=== PATIENT | female | born 1990 | race Caucasian/White ===

== ENCOUNTER 2017-12-22 17:15 | Inpatient (IN) | payer OTHER ==
[2017-12-22] MEDS ORDERED: Sodium Chloride 0.9% 1,000 ML IV ONE (17:32)
[2017-12-22] MEDS ORDERED: Activated Charcoal/Water Susp 50 GM/240 ML Tube PO ONE (18:08)
[2017-12-22 18:23] LABS: ACETAMINOPHEN 3 ug/mL (10-30)
[2017-12-22] MEDS ORDERED: Potassium Chloride 10 MEQ in Premix Bag 1 BAG IV STA (18:46)
--- NOTE | 2017-12-22 19:32 | EDM.PDOCBH ---
ED HPI GENERAL MEDICAL PROBLEM - General Chief Complaint: Behavioral/Psych Stated Complaint: [facility] Time Seen by Provider: 12/22/17 17:21 Source of Information: Reports: Patient History Limitations: Reports: No Limitations - History of Present Illness INITIAL COMMENTS - FREE TEXT/NARRATIVE: 27-year-old female presents via [facility] for evaluation and treatment of a suicide attempt by hanging and overdose. Patient reports she tried to hang herself about 2 hours prior to arrival in the ER. Reports she tried to overdose 1 hour prior to arrival in the ER. States that she took 6 1 mg Ativan and about 15-20 tabs of another medication. She initially said these were pink pills. She then told us that they were propranolol 10mg tabs. Her only pink tablets that she has prescribed to her are Seroquel 25 mg and citalopram 40mg milligrams. Upon arrival to the ER she is alert and orientated but elusive and agitated. Unwilling to give much information. Patient reports prior to today she has been taking the medications as prescribed. Nursing staff counted medications and if she is indeed taking her medications as prescribed all are accounted for. Patient reports that she was ill recently. She had abdominal discomfort and diarrhea over the last few days but this has now improved. Also reports hematuria intermittently the last few days. Patient is on several medications for pain including soma 350 mg and Vernon 10/ 325. She states she is on this for chronic back and and muscle spasms. Apparently the patient is from [place]. She came here several weeks ago. She has a and children in [place] that she is currently from. She is currently living with her fianc here in [place]. Plans to home to [place] in the next several weeks. She reports that her and her ex- got into an argument tonight and this is why she attempted to take her life. She states the overdose was an attempt to go to sleep. Reports the pain was a suicide attempt. Patient's fianc was present and witnessed the hanging. Reports she was not home for long less than a second. She attempted to do this with a belt. Sounds as if she had her hands and her neck in the belt immediately came free. She has no ligature golden to her neck. He reports he was in the bathroom when she took the medications. Onset: Today - Related Data Allergies Allergy/AdvReac Type Severity Reaction Status Date / Time clonazepam [From Klonopin] Allergy Other Verified 12/22/17 17:30 codeine Allergy Anaphylactic Verified 12/22/17 17:30 Shock gabapentin Allergy Seizure Verified 12/22/17 17:30 ketorolac [From Toradol] Allergy Anaphylactic Verified 12/22/17 17:30 Shock Penicillins Allergy Chest Verified 12/22/17 17:30 Tightness Home Meds: Home Meds Carisoprodol [Soma] 350 mg PO QID PRN 12/22/17 [History] Hydrocodone/Acetaminophen [Vernon 10-325 Tablet] 1 each PO Q4H 12/22/17 [History] LORazepam [Ativan] 1 mg PO BEDTIME 12/22/17 [History] Lurasidone HCl [Latuda] 40 mg PO BEDTIME 12/22/17 [History] Propranolol [Inderal] 10 mg PO ASDIRECTED 12/22/17 [History] QUEtiapine [SEROquel] 100 mg PO DAILY 12/22/17 [History] Topiramate [Topamax] 50 mg PO DAILY 12/22/17 [History] Past Medical History [employer] History: Reports: Psychiatric History: Reports: Addiction - Past Surgical History GI Surgical History: Reports: Bariatric Procedure Female Surgical History: Reports: Tubal Ligation Social & Family History - Tobacco Use Smoking Status *Q: Current Every Day Smoker Years of Tobacco use: 16 Packs/Tins Daily: 0.5 Used Tobacco, but Quit: No - Caffeine Use Caffeine Use: Reports: Soda - Recreational Drug Use Recreational Drug Use: No ED ROS GENERAL - Review of Systems Review Of Systems: See Below GI/Abdominal: Reports: Diarrhea (recently, now resolved) : Reports: Hematuria (intermittently) ED EXAM, BEHAVIORAL HEALTH - Physical Exam Exam: See Below Exam Limited By: No Limitations General Appearance: Alert, WD/WN, No Apparent Distress Ears: Normal External Exam Nose: Normal Inspection Throat/Mouth: Normal Inspection, Normal Lips, Normal Voice, No Airway Compromise Head: Atraumatic, Normocephalic Neck: Normal Inspection, Supple, Non-Tender, Full Range of Motion, Other (no ligature golden present) Respiratory/Chest: No Respiratory Distress, Lungs Clear, Normal Breath Sounds Cardiovascular: Normal Peripheral Pulses, Regular Rate, Rhythm, No Murmur GI/Abdominal: Normal Bowel Sounds, Soft, Non-Tender Neurological: Alert, Normal Cognition Psychiatric: Agitated, Uncooperative Skin Exam: Warm, Dry, Normal color, Signs of self injury (healed scars to the left wrist from previous cutting ) EKG INTERPRETATION EKG Date: 12/22/17 Time: 18:00 Rhythm: NSR Rate (Beats/Min): 72 [place]ard: Normal P-Wave: Present QRS: Normal ST-T: Normal QT: Normal (QTc 435) EKG Interpretation Comments: NSR at 72. QTc within normal limits at 435 bpm. No acute changes. Reviewed by myself and Dr. Andres. COURSE, BEHAVIORAL HEALTH COMP - Course Vital Signs: Last Vital Signs Temp 97.9 F 12/22/17 17:22 Pulse 94 12/22/17 20:09 Resp 22 H 12/22/17 20:09 BP 119/73 12/22/17 20:09 Pulse Ox 95 12/22/17 20:09 Orders, Labs, Meds: Active Orders 24 hr Category Date Time Status Patient Status [ADT] Routine ADT 12/22/17 20:59 Active EKG 12 Lead [EKG Documentation Completion] [RC] STAT Care 12/22/17 17:32 Active CALCIUM, IONIZED, SERUM [REF] Stat Lab 12/22/17 18:00 Received DRUG SCREEN, URINE [URCHEM] Stat Lab 12/22/17 18:20 Ordered UA W/MICROSCOPIC [URIN] Stat Lab 12/22/17 18:20 Ordered Laboratory Tests 12/22/17 12/22/17 12/22/17 Range/Units 18:00 18:00 18:00 WBC 6.12 (3.98-10.04) K/mm3 RBC 3.56 L (3.98-5.22) M/mm3 Hgb 11.9 (11.2-15.7) gm/L Hct 35.3 (34.1-44.9) % MCV 99.2 H (79.4-94.8) fl MCH 33.4 H (25.6-32.2) pg MCHC 33.7 (32.2-35.5) g/dl RDW Std Deviation 51.0 H (36.4-46.3) fL Plt Count 145 L (182-369) K/mm3 MPV 8.8 L (9.4-12.3) fl Neut % (Auto) 58.2 (34.0-71.1) % Lymph % (Auto) 33.0 (19.3-51.7) % Dent % (Auto) 8.2 (4.7-12.5) % Eos % (Auto) 0.2 L (0.7-5.8) Baso % (Auto) 0.2 (0.1-1.2) % Neut # (Auto) 3.57 (1.56-6.13) K/mm3 Lymph # (Auto) 2.02 (1.18-3.74) K/mm3 Dent # (Auto) 0.50 H (0.24-0.36) K/mm3 Eos # (Auto) 0.01 L (0.04-0.36) K/mm3 Baso # (Auto) 0.01 (0.01-0.08) K/mm3 Sodium 147 H (136-145) mEq/L Potassium 2.8 L (3.5-5.1) mEq/L Chloride 111 H (98-107) mEq/L Carbon Dioxide 25 (21-32) mEq/L Anion Gap 13.8 (5-15) BUN 13 (7-18) mg/dL Creatinine 0.7 (0.55-1.02) mg/dL Est Cr Clr Drug Dosing 107.67 mL/min Estimated GFR (MDRD) > 60 (>60) mL/min BUN/Creatinine Ratio 18.6 H (14-18) Glucose 91 (74-106) mg/dL Calcium 7.3 L (8.5-10.1) mg/dL Magnesium (1.8-2.4) mg/dl Total Bilirubin 0.4 (0.2-1.0) mg/dL AST 19 (15-37) U/L ALT 38 (14-59) U/L Alkaline Phosphatase 82 (46-116) U/L Total Protein 5.6 L (6.4-8.2) g/dl Albumin 2.8 L (3.4-5.0) g/dl Globulin 2.8 gm/dL Albumin/Globulin Ratio 1.0 (1-2) HCG, Qual Negative (NEGATIVE) Urine Color (Yellow) Urine Appearance (Clear) Urine pH (5.0-8.0) Ur Specific [place] (1.005-1.030) Urine Protein (Negative) Urine Glucose (UA) (Negative) Urine Ketones (Negative) Urine Occult Blood (Negative) Urine Nitrite (Negative) Urine Bilirubin (Negative) Urine Urobilinogen (0.2-1.0) Ur Leukocyte Esterase (Negative) Urine RBC (0-5) /hpf Urine WBC (0-5) /hpf Ur Epithelial Cells (0-5) /hpf Urine Bacteria (FEW) /hpf Urine Mucus (FEW) /hpf Salicylates (2.8-20) mg/dL Urine Opiates Screen (NEGATIVE) Ur Buprenorphine Scrn (NEGATIVE) Ur Oxycodone Screen (NEGATIVE) Urine Methadone Screen (NEGATIVE) Ur Propoxyphene Screen (NEGATIVE) Acetaminophen 3 L (10-30) ug/mL Ur Barbiturates Screen (NEGATIVE) Ur Tricyclics Screen (NEGATIVE) Ur Phencyclidine Scrn (NEGATIVE) Ur Amphetamine Screen (NEGATIVE) U Methamphetamines Scrn (NEGATIVE) U Benzodiazepines Scrn (NEGATIVE) U Cocaine Metab Screen (NEGATIVE) U Marijuana (THC) Screen (NEGATIVE) Ethyl Alcohol 0.23 (0.00) gm% 12/22/17 12/22/17 12/22/17 Range/Units 18:00 18:00 18:20 WBC (3.98-10.04) K/mm3 RBC (3.98-5.22) M/mm3 Hgb (11.2-15.7) gm/L Hct (34.1-44.9) % MCV (79.4-94.8) fl MCH (25.6-32.2) pg MCHC (32.2-35.5) g/dl RDW Std Deviation (36.4-46.3) fL Plt Count (182-369) K/mm3 MPV (9.4-12.3) fl Neut % (Auto) (34.0-71.1) % Lymph % (Auto) (19.3-51.7) % Dent % (Auto) (4.7-12.5) % Eos % (Auto) (0.7-5.8) Baso % (Auto) (0.1-1.2) % Neut # (Auto) (1.56-6.13) K/mm3 Lymph # (Auto) (1.18-3.74) K/mm3 Dent # (Auto) (0.24-0.36) K/mm3 Eos # (Auto) (0.04-0.36) K/mm3 Baso # (Auto) (0.01-0.08) K/mm3 Sodium (136-145) mEq/L Potassium (3.5-5.1) mEq/L Chloride (98-107) mEq/L Carbon Dioxide (21-32) mEq/L Anion Gap (5-15) BUN (7-18) mg/dL Creatinine (0.55-1.02) mg/dL Est Cr Clr Drug Dosing mL/min Estimated GFR (MDRD) (>60) mL/min BUN/Creatinine Ratio (14-18) Glucose (74-106) mg/dL Calcium (8.5-10.1) mg/dL Magnesium 1.9 (1.8-2.4) mg/dl Total Bilirubin (0.2-1.0) mg/dL AST (15-37) U/L ALT (14-59) U/L Alkaline Phosphatase (46-116) U/L Total Protein (6.4-8.2) g/dl Albumin (3.4-5.0) g/dl Globulin gm/dL Albumin/Globulin Ratio (1-2) HCG, Qual (NEGATIVE) Urine Color Light yellow (Yellow) Urine Appearance Slt cloudy H (Clear) Urine pH 6.5 (5.0-8.0) Ur Specific [place] 1.015 (1.005-1.030) Urine Protein Negative (Negative) Urine Glucose (UA) Negative (Negative) Urine Ketones Negative (Negative) Urine Occult Blood Trace-intact H (Negative) Urine Nitrite Positive H (Negative) Urine Bilirubin Negative (Negative) Urine Urobilinogen 0.2 (0.2-1.0) Ur Leukocyte Esterase 1+ H (Negative) Urine RBC 0-5 (0-5) /hpf Urine WBC 5-10 H (0-5) /hpf Ur Epithelial Cells 0-5 (0-5) /hpf Urine Bacteria Moderate H (FEW) /hpf Urine Mucus Not seen (FEW) /hpf Salicylates 1.6 L (2.8-20) mg/dL Urine Opiates Screen (NEGATIVE) Ur Buprenorphine Scrn (NEGATIVE) Ur Oxycodone Screen (NEGATIVE) Urine Methadone Screen (NEGATIVE) Ur Propoxyphene Screen (NEGATIVE) Acetaminophen (10-30) ug/mL Ur Barbiturates Screen (NEGATIVE) Ur Tricyclics Screen (NEGATIVE) Ur Phencyclidine Scrn (NEGATIVE) Ur Amphetamine Screen (NEGATIVE) U Methamphetamines Scrn (NEGATIVE) U Benzodiazepines Scrn (NEGATIVE) U Cocaine Metab Screen (NEGATIVE) U Marijuana (THC) Screen (NEGATIVE) Ethyl Alcohol (0.00) gm% 12/22/17 Range/Units 18:20 WBC (3.98-10.04) K/mm3 RBC (3.98-5.22) M/mm3 Hgb (11.2-15.7) gm/L Hct (34.1-44.9) % MCV (79.4-94.8) fl MCH (25.6-32.2) pg MCHC (32.2-35.5) g/dl RDW Std Deviation (36.4-46.3) fL Plt Count (182-369) K/mm3 MPV (9.4-12.3) fl Neut % (Auto) (34.0-71.1) % Lymph % (Auto) (19.3-51.7) % Dent % (Auto) (4.7-12.5) % Eos % (Auto) (0.7-5.8) Baso % (Auto) (0.1-1.2) % Neut # (Auto) (1.56-6.13) K/mm3 Lymph # (Auto) (1.18-3.74) K/mm3 Dent # (Auto) (0.24-0.36) K/mm3 Eos # (Auto) (0.04-0.36) K/mm3 Baso # (Auto) (0.01-0.08) K/mm3 Sodium (136-145) mEq/L Potassium (3.5-5.1) mEq/L Chloride (98-107) mEq/L Carbon Dioxide (21-32) mEq/L Anion Gap (5-15) BUN (7-18) mg/dL Creatinine (0.55-1.02) mg/dL Est Cr Clr Drug Dosing mL/min Estimated GFR (MDRD) (>60) mL/min BUN/Creatinine Ratio (14-18) Glucose (74-106) mg/dL Calcium (8.5-10.1) mg/dL Magnesium (1.8-2.4) mg/dl Total Bilirubin (0.2-1.0) mg/dL AST (15-37) U/L ALT (14-59) U/L Alkaline Phosphatase (46-116) U/L Total Protein (6.4-8.2) g/dl Albumin (3.4-5.0) g/dl Globulin gm/dL Albumin/Globulin Ratio (1-2) HCG, Qual (NEGATIVE) Urine Color (Yellow) Urine Appearance (Clear) Urine pH (5.0-8.0) Ur Specific [place] (1.005-1.030) Urine Protein (Negative) Urine Glucose (UA) (Negative) Urine Ketones (Negative) Urine Occult Blood (Negative) Urine Nitrite (Negative) Urine Bilirubin (Negative) Urine Urobilinogen (0.2-1.0) Ur Leukocyte Esterase (Negative) Urine RBC (0-5) /hpf Urine WBC (0-5) /hpf Ur Epithelial Cells (0-5) /hpf Urine Bacteria (FEW) /hpf Urine Mucus (FEW) /hpf Salicylates (2.8-20) mg/dL Urine Opiates Screen Negative (NEGATIVE) Ur Buprenorphine Scrn Negative (NEGATIVE) Ur Oxycodone Screen Negative (NEGATIVE) Urine Methadone Screen Negative (NEGATIVE) Ur Propoxyphene Screen Negative (NEGATIVE) Acetaminophen (10-30) ug/mL Ur Barbiturates Screen Negative (NEGATIVE) Ur Tricyclics Screen Negative (NEGATIVE) Ur Phencyclidine Scrn Negative (NEGATIVE) Ur Amphetamine Screen Negative (NEGATIVE) U Methamphetamines Scrn Negative (NEGATIVE) U Benzodiazepines Scrn Presumptive positive H (NEGATIVE) U Cocaine Metab Screen Negative (NEGATIVE) U Marijuana (THC) Screen Negative (NEGATIVE) Ethyl Alcohol (0.00) gm% Medications Discontinued Medications Generic Name Dose Route Start Last Admin Trade Name Freq PRN Reason Stop Dose Admin Charcoal 50 gm 12/22/17 18:08 12/22/17 18:18 Actidose-Aqua PO 12/22/17 18:09 50 gm ONETIME ONE Administration Sodium Chloride 1,000 mls @ 999 mls/hr 12/22/17 17:32 12/22/17 19:18 Normal Saline IV 12/22/17 18:32 Infused ONETIME ONE Infusion Potassium Chloride 10 meq/ 100 mls @ 100 mls/hr 12/22/17 18:46 07/21/18 19:14 Premix IV 12/22/17 19:45 100 mls/hr NOW STA Administration Ceftriaxone Sodium 2 gm/ 100 mls @ 100 mls/hr 12/22/17 20:09 12/22/17 20:30 Sodium Chloride IV 12/22/17 21:08 100 mls/hr ONETIME ONE Administration Re-Assessment/Re-Exam: 20:50 Poison control was contacted immediately once it was determined that she possibly could have overdosed on propranolol. Recommended activated charcoal. She took about half of the 50 gram dosage. Recommended monitoring until we could determine exactly what she had taken. Patient's fiancs brought her medications in. She continues states she took 6 1 mg tabs of Ativan and will 15-20 "pink pills ". the only pink medication she has are her Seroquel 25 mg and Celexa 40 mg. Poison control Was updated with this information. The propranolol she is on is the regular, not extended release. Looking like it is less likely that it was propranolol as she ingested, she has not had any bradycardia or hypotension. Recommend monitoring for at least 12 hours she is high risk for seizures if she took Celexa. She is also at risk for QT prolongation. And with her blood alcohol being 0.23 she is not cognizant to go home at this time. Case discussed with Dr. Landeros, hospitalist. She agreed to the admission. She will to the ICU where can be closely monitored. She has been given some potassium, fluids and Rocephin here in the ED. Departure - Departure Time of Disposition: 20:50 Disposition: Admitted As Inpatient 65 Condition: Undetermined Clinical Impression: Alcohol abuse, Drug abuse, Self-harm - Discharge Information Referrals: PCP,None [Primary Care Provider] - Forms: ED Department Discharge - My Orders Last 24 Hours: My Active Orders 12/22/17 17:32 EKG 12 Lead [EKG Documentation Completion] [RC] STAT 12/22/17 18:00 CALCIUM, IONIZED, SERUM [REF] Stat 12/22/17 18:20 DRUG SCREEN, URINE [URCHEM] Stat UA W/MICROSCOPIC [URIN] Stat 12/22/17 20:59 Patient Status [ADT] Routine - Assessment/Plan Last 24 Hours: My Active Orders 12/22/17 17:32 EKG 12 Lead [EKG Documentation Completion] [RC] STAT 12/22/17 18:00 CALCIUM, IONIZED, SERUM [REF] Stat 12/22/17 18:20 DRUG SCREEN, URINE [URCHEM] Stat UA W/MICROSCOPIC [URIN] Stat 12/22/17 20:59 Patient Status [ADT] Routine
[2017-12-22] MEDS ORDERED: cefTRIAXone 2 GM in Sodium Chloride 0.9% 100 ML IV ONE (20:09)
[2017-12-22] MEDS ORDERED: Metoprolol Tartrate 5 MG/5 ML SDV IVPUSH PRN (21:53)
[2017-12-22] MEDS ORDERED: Sodium Chloride 0.9% 1,000 ML IV SCH (22:00)
[2017-12-22] MEDS: chlordiazePOXIDE 10 MG Cap PO PRN (22:15)
[2017-12-23] MEDS: chlordiazePOXIDE 10 MG Cap PO PRN (07:09)
[2017-12-23] MEDS ORDERED: Ondansetron 4 MG/2 ML SDV IVPUSH PRN (09:31)
[2017-12-23] MEDS ORDERED: Topiramate 25 MG Tab PO SCH (09:45)
[2017-12-23] MEDS ORDERED: cefTRIAXone 2 GM in Sodium Chloride 0.9% 100 ML IV SCH (10:00)
--- NOTE | 2017-12-23 11:13 | PCM.DCSUM1 ---
Discharge Summary - Hospital Course Free Text/Narrative:: 27 year old signed out AMA after her psychiatric evaluation, the psychiatrist of record did not feel that additional evaluation was needed. Adjustment of her medication included a change to Seroquel at bedtime and Topamax BID. She refused to stay after the risk and benefits were explained in detail and subsequently left AMA. The patient reported having a chemical dependency treatment program in [place], [place] that she would be starting when returning in less than 2 weeks.. She reported to the hospitalist service that her fiance will keep booze away from her. She also stated that she was able to stop on her own. She stayed overnight in the ICU for close monitoring; overall , this appeared to be self harm and not a suicide gesture or attempt. HPI Initial Comments: 7 year old female presents after reportedly trying to harm herself, denies suicide gesture or attempt; she took Ativan and drank ETOH. The TED is 0.23. The patient's baseline is "a case" of presumably beer every 2-3 days. It had been reported that she tried to hang herself, but there are no golden or trauma on her neck. The patient has a history of meth abuse/dependence and has reportedly stopped 11 years ago. Additionally she reports stopping marijuana use 3 months ago. She states that she got into an argument with her whom she states is in [place]. Thus the report of the drinking binge was triggered by the argument. They have three children, they are getting a divorce. She has an extensive family psychiatric history involving both parents and a grandparent with schizophrenia and/or bipolar affective disorder. She is currently in the ED with her fiance who resides in [place]. Thus the history portion was obtained by the ED provider. The patient may or may not have taken Propranolol, she will be monitored for arrhythmias and withdrawal symptoms in the ICU. Consults by psychiatry and substance abuse providers have been requested. She is a full code. Diagnosis: Stroke: No - Discharge Data Discharge Date: 12/23/17 Discharge Disposition: Against Medical Advice 07 Condition: Good - Patient Summary/Data Consults: Consultations 12/22/17 22:00 Consult to Physician [CONS] Routine 12/22/17 22:02 Consult for Substance Abuse [CONS] Routine - Patient Instructions Diet: Regular Diet as Tolerated Activity: As Tolerated Driving: Do Not Drive Showering/Bathing: May Shower - Discharge Plan *PRESCRIPTION DRUG MONITORING PROGRAM REVIEWED*: No *COPY OF PRESCRIPTION DRUG MONITORING REPORT IN PATIENT GLADIS: No Home Medications: Home Meds Propranolol [Inderal] 10 mg PO ASDIRECTED 12/22/17 [History] QUEtiapine [SEROquel] 100 mg PO BEDTIME #0 12/23/17 [Rx] Topiramate [Topamax] 50 mg PO BID #0 12/23/17 [Rx] Albuterol [Ventolin HFA] 1 puff INH Q4H PRN #1 inhaler 12/24/17 [Rx] Potassium Chloride 20 meq PO DAILY #7 tablet.er 12/24/17 [Rx] Patient Handouts: Alcohol Use Disorder, Sedative, Hypnotic, or Anxiolytic Use Disorder Forms: ED Department Discharge Referrals: PCP,None [Primary Care Provider] - - Discharge Summary/Plan Comment DC Time >30 min.: No - General Info Date of Service: 12/22/17 - Patient Data Vitals - Most Recent: Last Vital Signs Temp 36.4 C 12/23/17 07:57 Pulse 88 12/23/17 03:04 Resp 17 12/23/17 07:57 BP 145/90 H 12/23/17 07:57 Pulse Ox 96 12/23/17 07:57 Weight - Most Recent: 76.022 kg I&O - Last 24 hours: Intake & Output 12/22/17 12/23/17 12/23/17 22:59 06:59 14:59 Intake Total 551 Output Total 500 1050 600 Balance -500 -499 -600 Lab Results - Last 24 hrs: Laboratory Results - last 24 hr 12/22/17 12/22/17 12/22/17 Range/Units 18:00 18:00 18:00 WBC 6.12 (3.98-10.04) K/mm3 RBC 3.56 L (3.98-5.22) M/mm3 Hgb 11.9 (11.2-15.7) gm/L Hct 35.3 (34.1-44.9) % MCV 99.2 H (79.4-94.8) fl MCH 33.4 H (25.6-32.2) pg MCHC 33.7 (32.2-35.5) g/dl RDW Std Deviation 51.0 H (36.4-46.3) fL Plt Count 145 L (182-369) K/mm3 MPV 8.8 L (9.4-12.3) fl Neut % (Auto) 58.2 (34.0-71.1) % Lymph % (Auto) 33.0 (19.3-51.7) % [place] % (Auto) 8.2 (4.7-12.5) % Eos % (Auto) 0.2 L (0.7-5.8) Baso % (Auto) 0.2 (0.1-1.2) % Neut # (Auto) 3.57 (1.56-6.13) K/mm3 Lymph # (Auto) 2.02 (1.18-3.74) K/mm3 [place] # (Auto) 0.50 H (0.24-0.36) K/mm3 Eos # (Auto) 0.01 L (0.04-0.36) K/mm3 Baso # (Auto) 0.01 (0.01-0.08) K/mm3 Sodium 147 H (136-145) mEq/L Potassium 2.8 L (3.5-5.1) mEq/L Chloride 111 H (98-107) mEq/L Carbon Dioxide 25 (21-32) mEq/L Anion Gap 13.8 (5-15) BUN 13 (7-18) mg/dL Creatinine 0.7 (0.55-1.02) mg/dL Est Cr Clr Drug Dosing 107.67 mL/min Estimated GFR (MDRD) > 60 (>60) mL/min BUN/Creatinine Ratio 18.6 H (14-18) Glucose 91 (74-106) mg/dL Calcium 7.3 L (8.5-10.1) mg/dL Magnesium (1.8-2.4) mg/dl Total Bilirubin 0.4 (0.2-1.0) mg/dL AST 19 (15-37) U/L ALT 38 (14-59) U/L Alkaline Phosphatase 82 (46-116) U/L Total Protein 5.6 L (6.4-8.2) g/dl Albumin 2.8 L (3.4-5.0) g/dl Globulin 2.8 gm/dL Albumin/Globulin Ratio 1.0 (1-2) HCG, Qual Negative (NEGATIVE) Urine Color (Yellow) Urine Appearance (Clear) Urine pH (5.0-8.0) Ur Specific [place] (1.005-1.030) Urine Protein (Negative) Urine Glucose (UA) (Negative) Urine Ketones (Negative) Urine Occult Blood (Negative) Urine Nitrite (Negative) Urine Bilirubin (Negative) Urine Urobilinogen (0.2-1.0) Ur Leukocyte Esterase (Negative) Urine RBC (0-5) /hpf Urine WBC (0-5) /hpf Ur Epithelial Cells (0-5) /hpf Urine Bacteria (FEW) /hpf Urine Mucus (FEW) /hpf Salicylates (2.8-20) mg/dL Urine Opiates Screen (NEGATIVE) Ur Buprenorphine Scrn (NEGATIVE) Ur Oxycodone Screen (NEGATIVE) Urine Methadone Screen (NEGATIVE) Ur Propoxyphene Screen (NEGATIVE) Acetaminophen 3 L (10-30) ug/mL Ur Barbiturates Screen (NEGATIVE) Ur Tricyclics Screen (NEGATIVE) Ur Phencyclidine Scrn (NEGATIVE) Ur Amphetamine Screen (NEGATIVE) U Methamphetamines Scrn (NEGATIVE) U Benzodiazepines Scrn (NEGATIVE) U Cocaine Metab Screen (NEGATIVE) U Marijuana (THC) Screen (NEGATIVE) Ethyl Alcohol 0.23 (0.00) gm% 12/22/17 12/22/17 12/22/17 Range/Units 18:00 18:00 18:20 WBC (3.98-10.04) K/mm3 RBC (3.98-5.22) M/mm3 Hgb (11.2-15.7) gm/L Hct (34.1-44.9) % MCV (79.4-94.8) fl MCH (25.6-32.2) pg MCHC (32.2-35.5) g/dl RDW Std Deviation (36.4-46.3) fL Plt Count (182-369) K/mm3 MPV (9.4-12.3) fl Neut % (Auto) (34.0-71.1) % Lymph % (Auto) (19.3-51.7) % [place] % (Auto) (4.7-12.5) % Eos % (Auto) (0.7-5.8) Baso % (Auto) (0.1-1.2) % Neut # (Auto) (1.56-6.13) K/mm3 Lymph # (Auto) (1.18-3.74) K/mm3 [place] # (Auto) (0.24-0.36) K/mm3 Eos # (Auto) (0.04-0.36) K/mm3 Baso # (Auto) (0.01-0.08) K/mm3 Sodium (136-145) mEq/L Potassium (3.5-5.1) mEq/L Chloride (98-107) mEq/L Carbon Dioxide (21-32) mEq/L Anion Gap (5-15) BUN (7-18) mg/dL Creatinine (0.55-1.02) mg/dL Est Cr Clr Drug Dosing mL/min Estimated GFR (MDRD) (>60) mL/min BUN/Creatinine Ratio (14-18) Glucose (74-106) mg/dL Calcium (8.5-10.1) mg/dL Magnesium 1.9 (1.8-2.4) mg/dl Total Bilirubin (0.2-1.0) mg/dL AST (15-37) U/L ALT (14-59) U/L Alkaline Phosphatase (46-116) U/L Total Protein (6.4-8.2) g/dl Albumin (3.4-5.0) g/dl Globulin gm/dL Albumin/Globulin Ratio (1-2) HCG, Qual (NEGATIVE) Urine Color Light yellow (Yellow) Urine Appearance Slt cloudy H (Clear) Urine pH 6.5 (5.0-8.0) Ur Specific [place] 1.015 (1.005-1.030) Urine Protein Negative (Negative) Urine Glucose (UA) Negative (Negative) Urine Ketones Negative (Negative) Urine Occult Blood Trace-intact H (Negative) Urine Nitrite Positive H (Negative) Urine Bilirubin Negative (Negative) Urine Urobilinogen 0.2 (0.2-1.0) Ur Leukocyte Esterase 1+ H (Negative) Urine RBC 0-5 (0-5) /hpf Urine WBC 5-10 H (0-5) /hpf Ur Epithelial Cells 0-5 (0-5) /hpf Urine Bacteria Moderate H (FEW) /hpf Urine Mucus Not seen (FEW) /hpf Salicylates 1.6 L (2.8-20) mg/dL Urine Opiates Screen (NEGATIVE) Ur Buprenorphine Scrn (NEGATIVE) Ur Oxycodone Screen (NEGATIVE) Urine Methadone Screen (NEGATIVE) Ur Propoxyphene Screen (NEGATIVE) Acetaminophen (10-30) ug/mL Ur Barbiturates Screen (NEGATIVE) Ur Tricyclics Screen (NEGATIVE) Ur Phencyclidine Scrn (NEGATIVE) Ur Amphetamine Screen (NEGATIVE) U Methamphetamines Scrn (NEGATIVE) U Benzodiazepines Scrn (NEGATIVE) U Cocaine Metab Screen (NEGATIVE) U Marijuana (THC) Screen (NEGATIVE) Ethyl Alcohol (0.00) gm% 12/22/17 Range/Units 18:20 WBC (3.98-10.04) K/mm3 RBC (3.98-5.22) M/mm3 Hgb (11.2-15.7) gm/L Hct (34.1-44.9) % MCV (79.4-94.8) fl MCH (25.6-32.2) pg MCHC (32.2-35.5) g/dl RDW Std Deviation (36.4-46.3) fL Plt Count (182-369) K/mm3 MPV (9.4-12.3) fl Neut % (Auto) (34.0-71.1) % Lymph % (Auto) (19.3-51.7) % [place] % (Auto) (4.7-12.5) % Eos % (Auto) (0.7-5.8) Baso % (Auto) (0.1-1.2) % Neut # (Auto) (1.56-6.13) K/mm3 Lymph # (Auto) (1.18-3.74) K/mm3 [place] # (Auto) (0.24-0.36) K/mm3 Eos # (Auto) (0.04-0.36) K/mm3 Baso # (Auto) (0.01-0.08) K/mm3 Sodium (136-145) mEq/L Potassium (3.5-5.1) mEq/L Chloride (98-107) mEq/L Carbon Dioxide (21-32) mEq/L Anion Gap (5-15) BUN (7-18) mg/dL Creatinine (0.55-1.02) mg/dL Est Cr Clr Drug Dosing mL/min Estimated GFR (MDRD) (>60) mL/min BUN/Creatinine Ratio (14-18) Glucose (74-106) mg/dL Calcium (8.5-10.1) mg/dL Magnesium (1.8-2.4) mg/dl Total Bilirubin (0.2-1.0) mg/dL AST (15-37) U/L ALT (14-59) U/L Alkaline Phosphatase (46-116) U/L Total Protein (6.4-8.2) g/dl Albumin (3.4-5.0) g/dl Globulin gm/dL Albumin/Globulin Ratio (1-2) HCG, Qual (NEGATIVE) Urine Color (Yellow) Urine Appearance (Clear) Urine pH (5.0-8.0) Ur Specific [place] (1.005-1.030) Urine Protein (Negative) Urine Glucose (UA) (Negative) Urine Ketones (Negative) Urine Occult Blood (Negative) Urine Nitrite (Negative) Urine Bilirubin (Negative) Urine Urobilinogen (0.2-1.0) Ur Leukocyte Esterase (Negative) Urine RBC (0-5) /hpf Urine WBC (0-5) /hpf Ur Epithelial Cells (0-5) /hpf Urine Bacteria (FEW) /hpf Urine Mucus (FEW) /hpf Salicylates (2.8-20) mg/dL Urine Opiates Screen Negative (NEGATIVE) Ur Buprenorphine Scrn Negative (NEGATIVE) Ur Oxycodone Screen Negative (NEGATIVE) Urine Methadone Screen Negative (NEGATIVE) Ur Propoxyphene Screen Negative (NEGATIVE) Acetaminophen (10-30) ug/mL Ur Barbiturates Screen Negative (NEGATIVE) Ur Tricyclics Screen Negative (NEGATIVE) Ur Phencyclidine Scrn Negative (NEGATIVE) Ur Amphetamine Screen Negative (NEGATIVE) U Methamphetamines Scrn Negative (NEGATIVE) U Benzodiazepines Scrn Presumptive positive H (NEGATIVE) U Cocaine Metab Screen Negative (NEGATIVE) U Marijuana (THC) Screen Negative (NEGATIVE) Ethyl Alcohol (0.00) gm% Med Orders - Current: Current Medications Chlordiazepoxide HCl (Librium) 10 mg PO BID PRN PRN Reason: Anxiety Last Admin: 12/23/17 07:09 Dose: 10 mg Sodium Chloride (Normal Saline) 1,000 mls @ 75 mls/hr IV ASDIRECTED DANTE Last Admin: 12/22/17 22:14 Dose: 75 mls/hr Ceftriaxone Sodium 2 gm/ (Sodium Chloride) 100 mls @ 100 mls/hr IV Q24H [facility] Last Admin: 12/23/17 09:56 Dose: 100 mls/hr Metoprolol Tartrate (Lopressor) 5 mg IVPUSH Q8HR PRN PRN Reason: Tachycardia Ondansetron HCl (Zofran) 4 mg IVPUSH Q8H PRN PRN Reason: Nausea/Vomiting Quetiapine Fumarate (Seroquel) 100 mg PO DAILY [facility] Topiramate (Topamax) 50 mg PO DAILY [facility] Last Admin: 12/23/17 09:54 Dose: 50 mg Discontinued Medications Charcoal (Actidose-Aqua) 50 gm PO ONETIME ONE Stop: 12/22/17 18:09 Last Admin: 12/22/17 18:18 Dose: 50 gm Sodium Chloride (Normal Saline) 1,000 mls @ 999 mls/hr IV ONETIME ONE Stop: 12/22/17 18:32 Last Infusion: 12/22/17 19:18 Dose: Infused Potassium Chloride 10 meq/ (Premix) 100 mls @ 100 mls/hr IV NOW STA Stop: 12/22/17 19:45 Last Admin: 12/22/17 19:14 Dose: 100 mls/hr Ceftriaxone Sodium 2 gm/ (Sodium Chloride) 100 mls @ 100 mls/hr IV ONETIME ONE Stop: 12/22/17 21:08 Last Admin: 12/22/17 20:30 Dose: 100 mls/hr
--- NOTE | 2017-12-23 11:13 | PCM.HP ---
H&P History of Present Illness - General Date of Service: 12/22/17 Admit Problem/Dx: Admission Diagnosis/Problem Admission Diagnosis/Problem Overdose of analgesic - History of Present Illness Initial Comments - Free Text/Narative: 27 year old female presents after reportedly trying to harm herself, denies suicide gesture or attempt; she took Ativan and drank ETOH. The TED is 0.23. The patient's baseline is "a case" of presumably beer every 2-3 days. It had been reported that she tried to hang herself, but there are no golden or trauma on her neck. The patient has a history of meth abuse/dependence and has reportedly stopped 11 years ago. Additionally she reports stopping marijuana use 3 months ago. She states that she got into an argument with her whom she states is in [place]. Thus the report of the drinking binge was triggered by the argument. They have three children, they are getting a divorce. She has an extensive family psychiatric history involving both parents and a grandparent with schizophrenia and/or bipolar affective disorder. She is currently in the ED with her fiance who resides in [place]. Thus the history portion was obtained by the ED provider. The patient may or may not have taken Propranolol, she will be monitored for arrhythmias and withdrawal symptoms in the ICU. Consults by psychiatry and substance abuse providers have been requested. She is a full code. Headache Pain Score (Numeric/FACES): 6 - Related Data Allergies/Adverse Reactions: Allergies Allergy/AdvReac Type Severity Reaction Status Date / Time clonazepam [From Klonopin] Allergy Other Verified 12/22/17 22:51 codeine Allergy Anaphylactic Verified 12/22/17 22:51 Shock ketorolac [From Toradol] Allergy Anaphylactic Verified 12/22/17 22:51 Shock Penicillins Allergy Chest Verified 12/22/17 22:51 Tightness gabapentin AdvReac Seizure Verified 12/23/17 12:01 Home Medications: Home Meds Propranolol [Inderal] 10 mg PO ASDIRECTED 12/22/17 [History] QUEtiapine [SEROquel] 100 mg PO BEDTIME #0 12/23/17 [Rx] Topiramate [Topamax] 50 mg PO BID #0 12/23/17 [Rx] Past Medical History Respiratory History: Reports: Asthma Gastrointestinal History: Reports: None Genitourinary History: Reports: None 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: Musculoskeletal History: Reports: Back Pain, Chronic Psychiatric History: Reports: Addiction - Past Surgical History GI Surgical History: Reports: Bariatric Procedure Female Surgical History: Reports: Tubal Ligation Social & Family History - Family History Family Medical History: Noncontributory - Tobacco Use Smoking Status *Q: Current Every Day Smoker Years of Tobacco use: 16 Packs/Tins Daily: 0.5 Used Tobacco, but Quit: No - Caffeine Use Caffeine Use: Reports: Soda - Alcohol Use Number of Drinks Per Day: 2 - Recreational Drug Use Recreational Drug Use: No Recreational Drug Type: Reports: Marijuana/Hashish, Methamphetamine Other Recreational Drug Type: pt states she quit marijuana 2 weeks ago; sober from Meth 11 years H&P Review of Systems - Review of Systems: Review Of Systems: ROS reveals no pertinent complaints other than HPI. Exam - Exam Exam: See Below - Vital Signs Vital Signs: Last Vital Signs Temp 36.4 C 12/23/17 07:57 Pulse 88 12/23/17 03:04 Resp 17 12/23/17 07:57 BP 145/90 H 12/23/17 07:57 Pulse Ox 96 12/23/17 07:57 Weight: 76.022 kg - Exam Quality Assessment: Supplemental Oxygen General: Lethargic HEENT: Pupils Equal, Pupils Reactive, PERRLA Neck: Trachea Midline Lungs: Clear to Auscultation, Normal Respiratory Effort Cardiovascular: Regular Rate, Bradycardia GI/Abdominal Exam: Normal Bowel Sounds, Soft, Non-Tender, No Organomegaly, No Distention (Female) Exam: Deferred Rectal (Female) Exam: Deferred Back Exam: Normal Inspection Extremities: Normal Inspection, Normal Capillary Refill Skin: Warm Neurological: Cranial Nerves Intact Neuro Extensive - Mental Status: Other (lethargic) Neuro Extensive - Motor, Sensory, Reflexes: CN II-XII Intact - Patient Data Lab Results Last 24 hrs: Laboratory Results - last 24 hr 12/22/17 12/22/17 12/22/17 Range/Units 18:00 18:00 18:00 WBC 6.12 (3.98-10.04) K/mm3 RBC 3.56 L (3.98-5.22) M/mm3 Hgb 11.9 (11.2-15.7) gm/L Hct 35.3 (34.1-44.9) % MCV 99.2 H (79.4-94.8) fl MCH 33.4 H (25.6-32.2) pg MCHC 33.7 (32.2-35.5) g/dl RDW Std Deviation 51.0 H (36.4-46.3) fL Plt Count 145 L (182-369) K/mm3 MPV 8.8 L (9.4-12.3) fl Neut % (Auto) 58.2 (34.0-71.1) % Lymph % (Auto) 33.0 (19.3-51.7) % Rogers % (Auto) 8.2 (4.7-12.5) % Eos % (Auto) 0.2 L (0.7-5.8) Baso % (Auto) 0.2 (0.1-1.2) % Neut # (Auto) 3.57 (1.56-6.13) K/mm3 Lymph # (Auto) 2.02 (1.18-3.74) K/mm3 Rogers # (Auto) 0.50 H (0.24-0.36) K/mm3 Eos # (Auto) 0.01 L (0.04-0.36) K/mm3 Baso # (Auto) 0.01 (0.01-0.08) K/mm3 Sodium 147 H (136-145) mEq/L Potassium 2.8 L (3.5-5.1) mEq/L Chloride 111 H (98-107) mEq/L Carbon Dioxide 25 (21-32) mEq/L Anion Gap 13.8 (5-15) BUN 13 (7-18) mg/dL Creatinine 0.7 (0.55-1.02) mg/dL Est Cr Clr Drug Dosing 107.67 mL/min Estimated GFR (MDRD) > 60 (>60) mL/min BUN/Creatinine Ratio 18.6 H (14-18) Glucose 91 (74-106) mg/dL Calcium 7.3 L (8.5-10.1) mg/dL Magnesium (1.8-2.4) mg/dl Total Bilirubin 0.4 (0.2-1.0) mg/dL AST 19 (15-37) U/L ALT 38 (14-59) U/L Alkaline Phosphatase 82 (46-116) U/L Total Protein 5.6 L (6.4-8.2) g/dl Albumin 2.8 L (3.4-5.0) g/dl Globulin 2.8 gm/dL Albumin/Globulin Ratio 1.0 (1-2) HCG, Qual Negative (NEGATIVE) Urine Color (Yellow) Urine Appearance (Clear) Urine pH (5.0-8.0) Ur Specific [place] (1.005-1.030) Urine Protein (Negative) Urine Glucose (UA) (Negative) Urine Ketones (Negative) Urine Occult Blood (Negative) Urine Nitrite (Negative) Urine Bilirubin (Negative) Urine Urobilinogen (0.2-1.0) Ur Leukocyte Esterase (Negative) Urine RBC (0-5) /hpf Urine WBC (0-5) /hpf Ur Epithelial Cells (0-5) /hpf Urine Bacteria (FEW) /hpf Urine Mucus (FEW) /hpf Salicylates (2.8-20) mg/dL Urine Opiates Screen (NEGATIVE) Ur Buprenorphine Scrn (NEGATIVE) Ur Oxycodone Screen (NEGATIVE) Urine Methadone Screen (NEGATIVE) Ur Propoxyphene Screen (NEGATIVE) Acetaminophen 3 L (10-30) ug/mL Ur Barbiturates Screen (NEGATIVE) Ur Tricyclics Screen (NEGATIVE) Ur Phencyclidine Scrn (NEGATIVE) Ur Amphetamine Screen (NEGATIVE) U Methamphetamines Scrn (NEGATIVE) U Benzodiazepines Scrn (NEGATIVE) U Cocaine Metab Screen (NEGATIVE) U Marijuana (THC) Screen (NEGATIVE) Ethyl Alcohol 0.23 (0.00) gm% 12/22/17 12/22/17 12/22/17 Range/Units 18:00 18:00 18:20 WBC (3.98-10.04) K/mm3 RBC (3.98-5.22) M/mm3 Hgb (11.2-15.7) gm/L Hct (34.1-44.9) % MCV (79.4-94.8) fl MCH (25.6-32.2) pg MCHC (32.2-35.5) g/dl RDW Std Deviation (36.4-46.3) fL Plt Count (182-369) K/mm3 MPV (9.4-12.3) fl Neut % (Auto) (34.0-71.1) % Lymph % (Auto) (19.3-51.7) % Rogers % (Auto) (4.7-12.5) % Eos % (Auto) (0.7-5.8) Baso % (Auto) (0.1-1.2) % Neut # (Auto) (1.56-6.13) K/mm3 Lymph # (Auto) (1.18-3.74) K/mm3 Rogers # (Auto) (0.24-0.36) K/mm3 Eos # (Auto) (0.04-0.36) K/mm3 Baso # (Auto) (0.01-0.08) K/mm3 Sodium (136-145) mEq/L Potassium (3.5-5.1) mEq/L Chloride (98-107) mEq/L Carbon Dioxide (21-32) mEq/L Anion Gap (5-15) BUN (7-18) mg/dL Creatinine (0.55-1.02) mg/dL Est Cr Clr Drug Dosing mL/min Estimated GFR (MDRD) (>60) mL/min BUN/Creatinine Ratio (14-18) Glucose (74-106) mg/dL Calcium (8.5-10.1) mg/dL Magnesium 1.9 (1.8-2.4) mg/dl Total Bilirubin (0.2-1.0) mg/dL AST (15-37) U/L ALT (14-59) U/L Alkaline Phosphatase (46-116) U/L Total Protein (6.4-8.2) g/dl Albumin (3.4-5.0) g/dl Globulin gm/dL Albumin/Globulin Ratio (1-2) HCG, Qual (NEGATIVE) Urine Color Light yellow (Yellow) Urine Appearance Slt cloudy H (Clear) Urine pH 6.5 (5.0-8.0) Ur Specific [place] 1.015 (1.005-1.030) Urine Protein Negative (Negative) Urine Glucose (UA) Negative (Negative) Urine Ketones Negative (Negative) Urine Occult Blood Trace-intact H (Negative) Urine Nitrite Positive H (Negative) Urine Bilirubin Negative (Negative) Urine Urobilinogen 0.2 (0.2-1.0) Ur Leukocyte Esterase 1+ H (Negative) Urine RBC 0-5 (0-5) /hpf Urine WBC 5-10 H (0-5) /hpf Ur Epithelial Cells 0-5 (0-5) /hpf Urine Bacteria Moderate H (FEW) /hpf Urine Mucus Not seen (FEW) /hpf Salicylates 1.6 L (2.8-20) mg/dL Urine Opiates Screen (NEGATIVE) Ur Buprenorphine Scrn (NEGATIVE) Ur Oxycodone Screen (NEGATIVE) Urine Methadone Screen (NEGATIVE) Ur Propoxyphene Screen (NEGATIVE) Acetaminophen (10-30) ug/mL Ur Barbiturates Screen (NEGATIVE) Ur Tricyclics Screen (NEGATIVE) Ur Phencyclidine Scrn (NEGATIVE) Ur Amphetamine Screen (NEGATIVE) U Methamphetamines Scrn (NEGATIVE) U Benzodiazepines Scrn (NEGATIVE) U Cocaine Metab Screen (NEGATIVE) U Marijuana (THC) Screen (NEGATIVE) Ethyl Alcohol (0.00) gm% 12/22/17 Range/Units 18:20 WBC (3.98-10.04) K/mm3 RBC (3.98-5.22) M/mm3 Hgb (11.2-15.7) gm/L Hct (34.1-44.9) % MCV (79.4-94.8) fl MCH (25.6-32.2) pg MCHC (32.2-35.5) g/dl RDW Std Deviation (36.4-46.3) fL Plt Count (182-369) K/mm3 MPV (9.4-12.3) fl Neut % (Auto) (34.0-71.1) % Lymph % (Auto) (19.3-51.7) % Rogers % (Auto) (4.7-12.5) % Eos % (Auto) (0.7-5.8) Baso % (Auto) (0.1-1.2) % Neut # (Auto) (1.56-6.13) K/mm3 Lymph # (Auto) (1.18-3.74) K/mm3 Rogers # (Auto) (0.24-0.36) K/mm3 Eos # (Auto) (0.04-0.36) K/mm3 Baso # (Auto) (0.01-0.08) K/mm3 Sodium (136-145) mEq/L Potassium (3.5-5.1) mEq/L Chloride (98-107) mEq/L Carbon Dioxide (21-32) mEq/L Anion Gap (5-15) BUN (7-18) mg/dL Creatinine (0.55-1.02) mg/dL Est Cr Clr Drug Dosing mL/min Estimated GFR (MDRD) (>60) mL/min BUN/Creatinine Ratio (14-18) Glucose (74-106) mg/dL Calcium (8.5-10.1) mg/dL Magnesium (1.8-2.4) mg/dl Total Bilirubin (0.2-1.0) mg/dL AST (15-37) U/L ALT (14-59) U/L Alkaline Phosphatase (46-116) U/L Total Protein (6.4-8.2) g/dl Albumin (3.4-5.0) g/dl Globulin gm/dL Albumin/Globulin Ratio (1-2) HCG, Qual (NEGATIVE) Urine Color (Yellow) Urine Appearance (Clear) Urine pH (5.0-8.0) Ur Specific [place] (1.005-1.030) Urine Protein (Negative) Urine Glucose (UA) (Negative) Urine Ketones (Negative) Urine Occult Blood (Negative) Urine Nitrite (Negative) Urine Bilirubin (Negative) Urine Urobilinogen (0.2-1.0) Ur Leukocyte Esterase (Negative) Urine RBC (0-5) /hpf Urine WBC (0-5) /hpf Ur Epithelial Cells (0-5) /hpf Urine Bacteria (FEW) /hpf Urine Mucus (FEW) /hpf Salicylates (2.8-20) mg/dL Urine Opiates Screen Negative (NEGATIVE) Ur Buprenorphine Scrn Negative (NEGATIVE) Ur Oxycodone Screen Negative (NEGATIVE) Urine Methadone Screen Negative (NEGATIVE) Ur Propoxyphene Screen Negative (NEGATIVE) Acetaminophen (10-30) ug/mL Ur Barbiturates Screen Negative (NEGATIVE) Ur Tricyclics Screen Negative (NEGATIVE) Ur Phencyclidine Scrn Negative (NEGATIVE) Ur Amphetamine Screen Negative (NEGATIVE) U Methamphetamines Scrn Negative (NEGATIVE) U Benzodiazepines Scrn Presumptive positive H (NEGATIVE) U Cocaine Metab Screen Negative (NEGATIVE) U Marijuana (THC) Screen Negative (NEGATIVE) Ethyl Alcohol (0.00) gm% Result Diagrams: 12/23/17 11:12 12/23/17 11:12 - Problem List (1) Bipolar affective disorder SNOMED Code(s): 15882932 ICD Code: F31.9 - BIPOLAR DISORDER, UNSPECIFIED Status: Acute (2) Alcohol abuse SNOMED Code(s): 80598867 ICD Code: F10.10 - ALCOHOL ABUSE, UNCOMPLICATED Status: Acute (3) Drug abuse SNOMED Code(s): 04644394 ICD Code: F19.10 - OTHER PSYCHOACTIVE SUBSTANCE ABUSE, UNCOMPLICATED Status : Acute (4) Self-harm SNOMED Code(s): 614420387 ICD Code: [id number] - Status: Acute (5) Tobacco dependence SNOMED Code(s): 72787401 ICD Code: F17.200 - NICOTINE DEPENDENCE, UNSPECIFIED, UNCOMPLICATED Status : Acute Problem List Initiated/Reviewed/Updated: Yes Orders Last 24hrs: Active Orders 24 hr Category Date Time Status Patient Status [ADT] Routine ADT 12/22/17 20:59 Active CIWAA Assessment [RC] Q1HR Care 12/22/17 21:53 Active EKG Documentation Completion [RC] 07 Care 12/22/17 21:56 Active Head of Bed Elevation [RC] ASDIRECTED Care 12/22/17 21:52 Active Notify Provider Consults [RC] ASDIRECTED Care 12/22/17 22:01 Active Up ad Cecilia [RC] ASDIRECTED Care 12/22/17 23:10 Active Consult for Substance Abuse [CONS] Routine Cons 12/22/17 22:02 Active Consult to Physician [CONS] Routine Cons 12/22/17 22:00 Active Clear Liquid Diet [DIET] Diet 12/23/17 Breakfast Active BMP [BASIC METABOLIC PANEL,BMP] [CHEM] Routine Lab 12/23/17 11:00 Ordered CALCIUM, IONIZED, SERUM [REF] Stat Lab 12/22/17 18:00 Received CBC WITH AUTO DIFF [HEME] Routine Lab 12/23/17 11:00 Ordered DRUG SCREEN, URINE [URCHEM] Stat Lab 12/22/17 18:20 Ordered MAGNESIUM [CHEM] Routine Lab 12/23/17 11:00 Ordered UA W/MICROSCOPIC [URIN] Stat Lab 12/22/17 18:20 Ordered Metoprolol Tartrate [Lopressor] Med 12/22/17 21:53 Active 5 mg IVPUSH Q8HR PRN Ondansetron [Zofran] Med 12/23/17 09:31 Active 4 mg IVPUSH Q8H PRN QUEtiapine [SEROquel] Med 12/24/17 09:00 Active 100 mg PO DAILY Sodium Chloride 0.9% [Normal Saline] 1,000 ml Med 12/22/17 22:00 Active IV ASDIRECTED Topiramate [Topamax] Med 12/23/17 09:45 Active 50 mg PO DAILY cefTRIAXone [Rocephin] 2 gm Med 12/23/17 10:00 Active Sodium Chloride 0.9% [Normal Saline] 100 ml IV Q24H chlordiazePOXIDE [Librium] Med 12/22/17 21:41 Active 10 mg PO BID PRN One To One Therapy [BH] Routine Oth 12/22/17 22:54 Ordered Seizure Precautions [OM.PC] Routine Oth 12/22/17 21:52 Ordered KELVIN Hose [Antiembolic Hose] [OM.PC] Routine Oth 12/22/17 21:56 Ordered Code Status [Resuscitation Status] Routine Resus Stat 12/22/17 22:03 Ordered EKG 12 Lead [EK] Routine Ther 12/23/17 07:00 Ordered Medication Orders Chlordiazepoxide HCl (Librium) 10 mg PO BID PRN PRN Reason: Anxiety Last Admin: 12/23/17 07:09 Dose: 10 mg Admin: 12/22/17 22:15 Dose: 10 mg Sodium Chloride (Normal Saline) 1,000 mls @ 75 mls/hr IV ASDIRECTED DANTE Last Admin: 12/22/17 22:14 Dose: 75 mls/hr Ceftriaxone Sodium 2 gm/ (Sodium Chloride) 100 mls @ 100 mls/hr IV Q24H [facility] Last Admin: 12/23/17 09:56 Dose: 100 mls/hr Metoprolol Tartrate (Lopressor) 5 mg IVPUSH Q8HR PRN PRN Reason: Tachycardia Ondansetron HCl (Zofran) 4 mg IVPUSH Q8H PRN PRN Reason: Nausea/Vomiting Quetiapine Fumarate (Seroquel) 100 mg PO DAILY DANTE Topiramate (Topamax) 50 mg PO DAILY [facility] Last Admin: 12/23/17 09:54 Dose: 50 mg Assessment/Plan Comment:: Impression: Self Harm, query suicide gesture--doubt Ingestion of Ativan and ETOH; legally above appropriate alcohol level ETOH abuse/dependence Polysubstance abuse/dependence Bipolar affective disorder Plan: Psychiatric/Substance Abuse consults Suicide monitoring Seizure precautions Aspiration precautions NPO except meds IVF Vitamin supplements Home meds Daily labs Replace electrolytes as needed. DVT/GI prophylaxis
--- NOTE | 2017-12-23 12:34 | CONS ---
CONSULTING PHYSICIAN: Tre Hunt MD DATE OF CONSULTATION: 12/23/2017 PSYCHIATRIC CONSULTATION This is a 60-minute inpatient clinical event. IDENTIFICATION: The patient is a 27-year-old female who was admitted to the MICU at [facility] in [place], [place]. She is seen for psychiatric consultation. CHIEF COMPLAINT: "I took some pills. I was fighting with my ex- on the phone. I am going through a divorce. I was drinking." HISTORY OF PRESENT ILLNESS: The patient is a 27-year-old female who reports that she is going through a divorce currently after 11 years of marriage. She states that she is from [place] and she has been visiting her fiance here in [place] for the past couple of weeks and will be here in [place], [place] for another 10 days. She states "my ex- is watching our 3 boys" and she states that when she talks with him, it is very hard emotionally and so she will start to drink to handle this and yesterday she got into a fight while on the phone and then impulsively overdosed with some of her propranolol and Ativan and there was a report from staff that she was even putting a belt around her neck. The patient denies that she is suicidal or homicidal at this point in time. She denies that she is psychotic, delusional, or paranoid. She states that she has been drinking quite a bit lately, noting "I drink a lot, maybe a case every 2 days." On admission, the patient did have a BAL of 0.23. She states that she knows she has drinking problem and that she is scheduled to go to outpatient CD treatment when she gets back to her hometown of [place], [place]. She also is treated for bipolar affective disease and anxiety. She has a psychiatrist, "Margarita Delaney" whom she sees regularly in [place]. She states when she takes her medications, she does pretty good from mental health standpoint, but she knows "I am almost out of them" and states that she takes Seroquel and Topamax to help with her mental health issues. The patient states that she used to have a history of meth dependence, but has been sober for "11 years now and I haven't used any marijuana in over 3 months." She states the main issue that she is struggling with is alcohol and again it is her intent that to stay sober going forward. The patient is denying any suicidal or homicidal ideation, again she is emphasizing that fact and wants to be discharged now, so she can get back home and spend more time with her fiance, "because he is going to work tomorrow." She denies any weapons at their residence and again is denying that she is suicidal. MEDICATIONS: At the time of presentation, the patient states she is takin. Topamax 50 mg b.i.d. for migraines and mood stability. 2. Seroquel 100 mg at bedtime for clarity of thought, mood stability, sleep initiation and maintenance. 3. Propranolol. 4. Ativan. 5. [place]. 6. [place]. The patient states that she needs refills on her Topamax and Seroquel now. ALLERGIES: 1. Penicillin. 2. Codeine. 3. Gabapentin. 4. Klonopin. 5. Toradol. PAST MEDICAL HISTORY: 1. Status post gastric sleeve surgery in 2016 with 120-pound weight loss. 2. Status post cholecystectomy in the past. 3. Status post hiatal hernia repair in the past. 4. Loss of right pinky in 2016. 5. D and C secondary to ectopic . 6. Status post tonsillectomy. 7. History of asthma. REVIEW OF SYSTEMS: Aside from GI, musculoskeletal, reproductive, and pulmonary, all other major organ systems are negative at this point in time for acute difficulties or complications. FAMILY PSYCHIATRIC AND CD HISTORY: The patient reports father had a history of schizophrenia and anxiety, mother has a history of bipolar affective disease, and her paternal grandmother also had a history of schizophrenia. PAST PSYCHIATRIC AND CD HISTORY: The patient reports approximately 7 psychiatric hospitalizations in the past. She states a lot of these hospitalizations were due to suicide attempts. She states she has had multiple suicide attempts by OD, both while under the influence and not under the influence. She also reports a history of self- injurious behaviors, but "not very often." Denies any chemical dependency treatment. Denies any DWIs. She has had detox admissions before. She states she has used meth, has been sober for 11 years and marijuana, but has been sober for over 3 months. Her outpatient psychiatrist to Dr. Margarita Delaney in [place], [place]. She has been diagnosed with bipolar affective disease, manic, depressive, according to the patient as well as severe anxiety and panic. She states her last suicide attempt prior to this event was "many years ago." SOCIAL HISTORY: The patient was born and raised in [place], [place]. She is currently in [place] for the past few weeks visiting her fibrain, who works out in an oil field. The patient works as a dental assistant medical assistant by [employer] She lives in [place], [place] with her 3 children, 3 boys, and sister. She is currently staying in [place] with her fiance for another 10-12 days and then moving back to [place]. She denies any prior service or any current legal difficulties. She is L[employer]. MENTAL STATUS EXAM: The patient is a 27-year-old female, in no apparent distress. Speech is of regular rate and rhythm. The patient is cognitively oriented x3. Psychomotor activity is within normal limits. There are no abnormal motor movements or tics observed. Gait and station are not observed. This patient is seated on the side of the bed for the purposes of the inpatient consult. Mood is "tired." Affect is cooperative overall for the purposes of the inpatient psychiatric consult. There is no behavioral or stated evidence of acute suicidal or homicidal ideation. There is no behavioral or stated evidence of any acute psychotic, delusional, or paranoid symptoms. Thought processes are organized. There are no manic symptoms or loose associations evident. Judgment and insight appear unimpaired at this point in time. Motivation for help appears fair to good. VITAL SIGNS: 5 feet 1 inch tall, 167 pounds. 145/90, 60, 17, 97.5 degrees. IMPRESSION: [place] I: 1. Bipolar affective disease, not otherwise specified, F31.9. 2. Alcohol dependence, F10.20. 3. Anxiety disorder, not otherwise specified, F41.9. 4. History of polysubstance abuse versus dependence. [place] II: None. [place] III: 1. Rule out signs and symptoms of potential alcohol withdrawal. 2. See past medical history for the patient's other medical conditions. [place] IV: Severe. [place] V: 60. PLAN: 1. Discontinue 1-1. 2. Sobriety. 3. AA rep to visit the patient while she remains on unit. 4. Pastoral guidance. 5. Folic acid supplementation. 6. Thiamine supplementation. 7. Continue Seroquel 100 mg at bedtime for clarity of thought, mood stability, sleep initiation and maintenance, anxiety reduction. 8. Continue Topamax 50 mg b.i.d. for mood stability, anxiety reduction, treatment of migraines. 9. We would recommend that the patient is able to be discharged from a psychiatric standpoint back to the community. She is medically stable. She is not appearing to be a danger to herself or others at this point in time. 10.We would recommend the patient be given a 2-week supply of her prescribed Seroquel and Topamax medications, she states she is getting low on these medications while she is remaining in [place] for the next 10-12 days. 11.Recommend the patient to follow up with Outpatient Psychiatry scheduled when she gets back to [place]. 12.Counseling scheduled for psychosocial issues also when she gets back to [place]. 13.We will continue to follow up with the patient on an as-needed basis while she remains on inpatient MICU. 14.We will follow up with the patient sooner if there are any complications in the interim. 15.If the patient has any breakthrough symptoms or relapses, I recommend that she returns to the hospital for further treatment and attention if needed. 16.Crisis plan is in place. VIOLET /[id number]
[2017-12-24] MEDS ORDERED: QUEtiapine 100 MG Tab PO SCH (09:00)
== END 2017-12-23 11:25 | disposition left against medical advice (07) | DRG 918 ==
LOC: EDBD → JD.ED 17:15 → JD.ICU 20:54
PROVIDERS: ADMIT Internal Medicine Cardiovascular Disease; ATTEND Internal Medicine Cardiovascular Disease
DX: T42.4X1A Poisoning by benzodiazepines, accidental (unintentional), initial encounter (principal); F19.20 Other psychoactive substance dependence, uncomplicated; Z91.19 Patient's noncompliance with other medical treatment and regimen; J45.909 Unspecified asthma, uncomplicated; G89.29 Other chronic pain; M54.9 Dorsalgia, unspecified; F17.200 Nicotine dependence, unspecified, uncomplicated; F31.9 Bipolar disorder, unspecified; F10.20 Alcohol dependence, uncomplicated; T44.7X1A Poisoning by beta-adrenoreceptor antagonists, accidental (unintentional), initial encounter; Y90.7 Blood alcohol level of 200-239 mg/100 ml; M62.838 Other muscle spasm; F41.9 Anxiety disorder, unspecified; Z90.49 Acquired absence of other specified parts of digestive tract; Z79.899 Other long term (current) drug therapy; Z88.8 Allergy status to other drugs, medicaments and biological substances; Z88.6 Allergy status to analgesic agent; Z88.0 Allergy status to penicillin; Z98.84 Bariatric surgery status; Z89.021 Acquired absence of right finger(s)
CPT/HCPCS: 36415; 80048; 80053; 80306; 81001; 82330; 83735; 84703; 85025; 93005; 96361; 96365; 96367; 99285-25; A9270-GY; G0480; J0696; J3480; J7030; J7040

== ENCOUNTER 2017-12-24 12:48 | Emergency (ER) | payer OTHER ==
[2017-12-24] MEDS ORDERED: diphenhydrAMINE 50 MG/ML SDV IVPUSH ONE (13:11)
[2017-12-24] MEDS ORDERED: Famotidine 20 MG/2 ML SDV IVPUSH ONE (13:11)
--- NOTE | 2017-12-24 13:12 | EDM.PDOC ---
ED HPI GENERAL MEDICAL PROBLEM - General Chief Complaint: Allergic Reaction Stated Complaint: ALLERGIC REACTION Time Seen by Provider: 12/24/17 13:02 Source of Information: Reports: Patient History Limitations: Reports: No Limitations - History of Present Illness INITIAL COMMENTS - FREE TEXT/NARRATIVE: 27-year-old female presents for evaluation and treatment of possible allergic reaction. Patient reports last night she could not walk. She is unable to tell if this was due to pain or physically being unable to. She is complaining of pain to the bilateral legs. She reports last night she used a moist towellet for face wash. She states that she's used these before but never the generic brand, which she used for the first time last night. Reports when she awoke this morning she had numbness and tingling to her face and extremities. She states that her entire face was swollen and her throat was itchy. She also reports that her hands are swollen. It sounds as if she woke up around 8:00 and ate half of the bread stick. She must have went back to bed and she woke up on our prior to arrival in the ED. This is when she first appreciated the swelling to her face, hands and itchiness to her throat. She denies any trouble breathing. No hives. No medication changes. Patient was seen in ED on Sunday night by myself. At that time she was seen for suicide attempt by hanging and overdose. Unclear what she attempted to overdose on. she was admitted to ICU. She left AMA the next morning. Review of her records show her potassium was slightly low in the ED. She did receive some potassium here. in ICU Her magnesium and her potassium were slightly low. Onset: Today Location: Reports: Face, Upper Extremity, Left, Upper Extremity, Right - Related Data Allergies Allergy/AdvReac Type Severity Reaction Status Date / Time clonazepam [From Klonopin] Allergy Other Verified 12/24/17 12:54 codeine Allergy Anaphylactic Verified 12/24/17 12:54 Shock ketorolac [From Toradol] Allergy Anaphylactic Verified 12/24/17 12:54 Shock Penicillins Allergy Chest Verified 12/24/17 12:54 Tightness gabapentin AdvReac Seizure Verified 12/24/17 12:54 Home Meds: Home Meds Propranolol [Inderal] 10 mg PO ASDIRECTED 12/22/17 [History] QUEtiapine [SEROquel] 100 mg PO BEDTIME #0 12/23/17 [Rx] Topiramate [Topamax] 50 mg PO BID #0 12/23/17 [Rx] Albuterol [Ventolin HFA] 1 puff INH Q4H PRN #1 inhaler 12/24/17 [Rx] Potassium Chloride 20 meq PO DAILY #7 tablet.er 12/24/17 [Rx] Past Medical History Respiratory History: Reports: Asthma Gastrointestinal History: Reports: None Genitourinary History: Reports: None SOFTWARE [employer]PLICATION [employer] History: Reports: Musculoskeletal History: Reports: Back Pain, Chronic Psychiatric History: Reports: Addiction - Past Surgical History GI Surgical History: Reports: Bariatric Procedure Female Surgical History: Reports: Tubal Ligation Social & Family History - Family History Family Medical History: Noncontributory - Caffeine Use Caffeine Use: Reports: Soda ED ROS ALLERGIC REACTION - Review of Systems Review Of Systems: See Below HEENT: Reports: Throat Swelling, Other (reports face is swollen) Respiratory: Denies: Shortness of Breath, Cough Skin: Reports: Other (no hives) Neurological: Reports: Numbness (face and bilateral hands), Tingling (face and bilateral hands) ED EXAM GENERAL NO PERIP PULSE - Physical Exam Exam: See Below Exam Limited By: No Limitations General Appearance: Alert, WD/WN, No Apparent Distress, Anxious Ears: Normal External Exam Nose: Normal Inspection Throat/Mouth: Normal Inspection, Normal Lips, Normal Voice, No Airway Compromise , Other (no uvula swelling) Head: Atraumatic, Normocephalic. No: Facial Swelling Neck: Normal Inspection, Full Range of Motion Respiratory/Chest: No Respiratory Distress, Lungs Clear, Normal Breath Sounds Cardiovascular: Normal Peripheral Pulses, Regular Rate, Rhythm, No Murmur GI/Abdominal: Soft, Non-Tender Neurological: Alert, Oriented, Normal Cognition Psychiatric: Normal Affect, Normal Mood Skin Exam: Warm, Dry, Normal Color, Other (no hives) Course - Vital Signs Last Recorded V/S: Last Vital Signs Temp 98.0 F 12/24/17 12:51 Pulse 88 12/24/17 12:51 Resp 18 12/24/17 12:51 BP 145/105 H 12/24/17 12:51 Pulse Ox 98 12/24/17 12:51 - Orders/Labs/Meds Orders: Active Orders 24 hr Category Date Time Status DRUG SCREEN, URINE [URCHEM] Stat Lab 12/24/17 13:50 Ordered Labs: Laboratory Tests 12/24/17 12/24/17 12/24/17 Range/Units 12:54 12:54 13:50 WBC 4.01 (3.98-10.04) K/mm3 RBC 3.92 L (3.98-5.22) M/mm3 Hgb 13.0 (11.2-15.7) gm/L Hct 38.6 (34.1-44.9) % MCV 98.5 H (79.4-94.8) fl MCH 33.2 H (25.6-32.2) pg MCHC 33.7 (32.2-35.5) g/dl RDW Std Deviation 51.4 H (36.4-46.3) fL Plt Count 167 L (182-369) K/mm3 MPV 9.0 L (9.4-12.3) fl Neut % (Auto) 41.8 (34.0-71.1) % Lymph % (Auto) 46.9 (19.3-51.7) % Powell % (Auto) 9.7 (4.7-12.5) % Eos % (Auto) 0.7 (0.7-5.8) Baso % (Auto) 0.7 (0.1-1.2) % Neut # (Auto) 1.67 (1.56-6.13) K/mm3 Lymph # (Auto) 1.88 (1.18-3.74) K/mm3 Powell # (Auto) 0.39 H (0.24-0.36) K/mm3 Eos # (Auto) 0.03 L (0.04-0.36) K/mm3 Baso # (Auto) 0.03 (0.01-0.08) K/mm3 Sodium 142 (136-145) mEq/L Potassium 3.0 L (3.5-5.1) mEq/L Chloride 107 (98-107) mEq/L Carbon Dioxide 26 (21-32) mEq/L Anion Gap 12.0 (5-15) BUN 12 (7-18) mg/dL Creatinine 0.7 (0.55-1.02) mg/dL Est Cr Clr Drug Dosing 103.32 mL/min Estimated GFR (MDRD) > 60 (>60) mL/min BUN/Creatinine Ratio 17.1 (14-18) Glucose 101 (74-106) mg/dL Calcium 8.0 L (8.5-10.1) mg/dL Magnesium 1.7 L (1.8-2.4) mg/dl Total Bilirubin 0.7 (0.2-1.0) mg/dL AST 87 H (15-37) U/L ALT 52 (14-59) U/L Alkaline Phosphatase 105 (46-116) U/L Total Protein 6.0 L (6.4-8.2) g/dl Albumin 2.9 L (3.4-5.0) g/dl Globulin 3.1 gm/dL Albumin/Globulin Ratio 0.9 L (1-2) Urine Opiates Screen Presumptive positive H (NEGATIVE) Ur Buprenorphine Scrn Negative (NEGATIVE) Ur Oxycodone Screen Negative (NEGATIVE) Urine Methadone Screen Negative (NEGATIVE) Ur Propoxyphene Screen Negative (NEGATIVE) Ur Barbiturates Screen Negative (NEGATIVE) Ur Tricyclics Screen Negative (NEGATIVE) Ur Phencyclidine Scrn Negative (NEGATIVE) Ur Amphetamine Screen Negative (NEGATIVE) U Methamphetamines Scrn Negative (NEGATIVE) U Benzodiazepines Scrn Presumptive positive H (NEGATIVE) U Cocaine Metab Screen Negative (NEGATIVE) U Marijuana (THC) Screen Negative (NEGATIVE) Ethyl Alcohol 0.10 (0.00) gm% Meds: Medications Discontinued Medications Generic Name Dose Route Start Last Admin Trade Name Freq PRN Reason Stop Dose Admin Diphenhydramine HCl 50 mg 12/24/17 13:11 12/24/17 13:29 Benadryl IVPUSH 12/24/17 13:12 50 mg ONETIME ONE Administration Famotidine 20 mg 12/24/17 13:11 12/24/17 13:33 Pepcid IVPUSH 12/24/17 13:12 20 mg ONETIME ONE Administration Sodium Chloride 1,000 mls @ 999 mls/hr 12/24/17 13:36 12/24/17 13:50 Normal Saline IV 12/24/17 14:36 999 mls/hr ONETIME ONE Administration Potassium Chloride 10 meq/ 100 mls @ 100 mls/hr 12/24/17 13:45 12/24/17 13:49 Premix IV 100 mls/hr ASDIRECTED DANTE Administration Ondansetron HCl 4 mg 12/24/17 13:34 12/24/17 13:40 Zofran IVPUSH 12/24/17 13:35 4 mg ONETIME ONE Administration Ondansetron HCl 4 mg 12/24/17 14:48 12/24/17 14:55 Zofran IVPUSH 12/24/17 14:49 4 mg ONETIME ONE Administration - Re-Assessments/Exams Free Text/Narrative Re-Assessment/Exam: 12/24/17 13:43 Patient is in room retching. Fluids, IV zofran and IV potassium ordered. 12/24/17 14:37 Patient is almost done with her fluids. Her potassium is slightly low today at 3.0. Magnesium is slightly low at 1.7. She has be given 10 meq IV as she has been retching here in the ED. I do feel that her symptoms are more related to her alcohol abuse and intoxication. I Do not feel that she is having allergic reaction. She has no difficulty breathing. No facial swelling here. No hives. No uvula swelling. Will finish fluids and discharged home. Discharge instructions as documented. Departure - Departure Time of Disposition: 14:38 Disposition: Home, Self-Care 01 Condition: Good Clinical Impression: Hypokalemia, Alcohol abuse - Discharge Information *PRESCRIPTION DRUG MONITORING PROGRAM REVIEWED*: No *COPY OF PRESCRIPTION DRUG MONITORING REPORT IN PATIENT GLADIS: No Prescriptions: Albuterol [Ventolin HFA] 1 puff INH Q4H PRN #1 inhaler PRN Reason: Shortness Of Breath Potassium Chloride 20 meq PO DAILY #7 tablet.er Instructions: Hypokalemia, Alcohol Abuse and Nutrition Referrals: PCP,Not In Area [Primary Care Provider] - Forms: ED Department Discharge Additional Instructions: Your potassium was low today. You given some in the ER. Start your supplementation tomorrow. 1 tab daily for 7 days. Follow-up with family medicine in 1 week to have your potassium rechecked. Recommend Dr. Mcadams at the [facility]. Call [phone] to schedule with her. You albuterol has been refilled for you today. Please return to the ER for symptoms change or worsen. - My Orders Last 24 Hours: My Active Orders 12/24/17 13:50 DRUG SCREEN, URINE [URCHEM] Stat - Assessment/Plan Last 24 Hours: My Active Orders 12/24/17 13:50 DRUG SCREEN, URINE [URCHEM] Stat
[2017-12-24] MEDS ORDERED: Ondansetron 4 MG/2 ML SDV IVPUSH ONE ×2 (13:34→14:48)
[2017-12-24] MEDS ORDERED: Sodium Chloride 0.9% 1,000 ML IV ONE (13:36)
[2017-12-24] MEDS ORDERED: Potassium Chloride 10 MEQ in Premix Bag 1 BAG IV SCH (13:45)
== END 2017-12-24 15:28 | disposition home or self-care (01) ==
LOC: JD.ED 12:48 → EDBD 12:48 → JD.ED 15:28
DX: E87.6 Hypokalemia (principal); F10.10 Alcohol abuse, uncomplicated; Z88.8 Allergy status to other drugs, medicaments and biological substances; Z88.0 Allergy status to penicillin; Z88.5 Allergy status to narcotic agent
CPT/HCPCS: 36415; 80053; 80306; 83735; 85025; 96365; 96375; 96376; 99284; G0480; J1200; J2405; J3480; J3490; J7040